=== PATIENT | male | born 1970 | race Caucasian/White ===

== ENCOUNTER 2017-01-03 01:57 | Emergency (ER) | payer OTHER ==
--- NOTE | ~2017-01-03 | CR133 ---
[facility] A Service of [facility] & [facility] RADIOLOGY TEXT RESULTS PATIENT: ANIKA COSTELLO LOCATION: [facility] : 70 UNIT #: [id number] AGE: [address]: Barrie Quiroz DO SEX: M ORDER DR: [id number] [facility] [address] [place], [place] [address] [id number] E MR#: [id number] Acc #: [id number] NAME: ANIKA COSTELLO : 1970 SEX: M STUDY DATE/TIME: 01/03/2017 2:13 UNIT: [facility] ROOM: STUDY DESCRIPTION: CR Forearm 2 View Rt Attending Physician: Barrie Quiroz D.O. Ordering Physician: Barrie Quiroz D.O. Primary Care Physician: Primary Care Physician No MEDICAL IMAGING REPORT This report is preliminary unless electronic signature is present EXAM Forearm on the right 2 views, 01/03/2017 INDICATION Generalized arm pain after 2 seizures tonight. TECHNIQUE 2 views of the right forearm COMPARISON No comparisons FINDINGS The examination is negative. No acute fracture. Soft tissues unremarkable. IMPRESSION Negative. Dictated by... Rodney Riley M.D. THIS IS AN ELECTRONICALLY VERIFIED REPORT Rodney Riley M.D. at 01/03/2017 9:55 PM Sandi TD: 01/03/2017 08:14 JOB #: [id number] MEDICAL IMAGING REPORT Page 1 of 1 COPY
--- NOTE | ~2017-01-03 | CR181 ---
[facility] A Service of [facility] & [facility] RADIOLOGY TEXT RESULTS PATIENT: ANIKA COSTELLO LOCATION: [facility] : 70 UNIT #: [id number] AGE: [address]: Barrie Quiroz DO SEX: M ORDER DR: [id number] [facility] [address] [place], [place] [address] [id number] E MR#: [id number] Acc #: [id number] NAME: ANIKA COSTELLO : 1970 SEX: M STUDY DATE/TIME: 01/03/2017 2:25 UNIT: [facility] ROOM: STUDY DESCRIPTION: CR Lumbar Spine 2 or 3 Views Attending Physician: Barrie Quiroz D.O. Ordering Physician: Barrie Quiroz D.O. Primary Care Physician: Primary Care Physician No MEDICAL IMAGING REPORT This report is preliminary unless electronic signature is present EXAM Lumbar series 01/03/2017 INDICATIONS 46-year-old male with trauma tonight, seizure x2, generalized back pain. TECHNIQUE 3 views of the lumbar spine compared 11/24/2013 FINDINGS There is no acute fracture or malalignment. Mild degenerative disc disease at L4-5. No significant facet arthropathy. IMPRESSION Mild degenerative change at L4-5 otherwise negative lumbar series. Dictated by... Rodney Riley M.D. THIS IS AN ELECTRONICALLY VERIFIED REPORT Rodney Riley M.D. at 01/03/2017 9:55 PM Garrett TD: 01/03/2017 08:33 JOB #: [id number] MEDICAL IMAGING REPORT Page 1 of 1 COPY
--- NOTE | ~2017-01-03 | CR243 ---
[facility] A Service of [facility] & [facility] RADIOLOGY TEXT RESULTS PATIENT: ANIKA COSTELLO LOCATION: [facility] : 70 UNIT #: [id number] AGE: [address]: Barrie Quiroz DO SEX: M ORDER DR: [id number] [facility] [address] [place], [place] [address] [id number] E MR#: [id number] Acc #: [id number] NAME: ANIKA COSTELLO : 1970 SEX: M STUDY DATE/TIME: 01/03/2017 2:17 UNIT: [facility] ROOM: STUDY DESCRIPTION: CR Thoracic Spine 3 Views Attending Physician: Barrie Quiroz D.O. Ordering Physician: Barrie Quiroz D.O. Primary Care Physician: Primary Care Physician No MEDICAL IMAGING REPORT This report is preliminary unless electronic signature is present EXAM Thoracic series 01/03/2017 INDICATION Trauma, seizure, generalized back pain, 2 seizures tonight. TECHNIQUE Lateral, frontal and swimmer's views were performed. COMPARISON 09/17/2013. FINDINGS Cervicothoracic junction intact. The bones are osteopenic. There is no acute-appearing fracture or malalignment. IMPRESSION Osteopenia. No acute fracture or malalignment. Mild degenerative disc disease in the cervical thoracic spine. Dictated by... Rodney Riley M.D. THIS IS AN ELECTRONICALLY VERIFIED REPORT Rodney Riley M.D. at 01/03/2017 9:52 PM KAMALJIT/lavonne TD: 01/03/2017 08:16 JOB #: [id number] MEDICAL IMAGING REPORT Page 1 of 1 COPY
--- NOTE | ~2017-01-03 | CR219 ---
[facility] A Service of [facility] & [facility] RADIOLOGY TEXT RESULTS PATIENT: ANIKA COSTELLO LOCATION: [facility] : 70 UNIT #: [id number] AGE: [address]: Barrie Quiroz DO SEX: M ORDER DR: [id number] [facility] [address] [place], [place] [address] [id number] E MR#: [id number] Acc #: [id number] NAME: ANIKA COSTELLO : 1970 SEX: M STUDY DATE/TIME: 01/03/2017 2:28 UNIT: [facility] ROOM: STUDY DESCRIPTION: CR Sacrum and Coccyx Min 2 Vie Attending Physician: Barrie Quiroz D.O. Ordering Physician: Barrie Quiroz D.O. Primary Care Physician: Primary Care Physician No MEDICAL IMAGING REPORT This report is preliminary unless electronic signature is present EXAM Sacrum and coccyx series 01/03/2017 INDICATIONS Seizure x2 tonight. Back pain, generalized back pain. TECHNIQUE 3 views of the sacrum and coccyx. No relevant comparisons. FINDINGS Frontal view degraded by exposure factors. Mild degenerative change of both hips. Mild degenerative disc disease at L4-5 in the lumbar spine. No acute-appearing fracture. SI joints intact. IMPRESSION 1. No acute fracture. Mild degenerative disc disease at L4-5 and degenerative change of the hips. Dictated by... Rodney Riley M.D. THIS IS AN ELECTRONICALLY VERIFIED REPORT Rodney Riley M.D. at 01/03/2017 9:55 PM Wilian TD: 01/03/2017 08:20 JOB #: [id number] MEDICAL IMAGING REPORT Page 1 of 1 COPY
--- NOTE | ~2017-01-03 | CT71 ---
[facility] A Service of [facility] RADIOLOGY TEXT RESULTS PATIENT: ANIKA COSTELLO LOCATION: [facility] : 70 UNIT #: [id number] AGE: [address]: Barrie Quiroz DO SEX: M ORDER DR: [id number] [facility] [address] [place], [place] [address] [id number] E MR#: [id number] Acc #: [id number] NAME: ANIKA COSTELLO : 1970 SEX: M STUDY DATE/TIME: 01/03/2017 3:06 UNIT: [facility] ROOM: STUDY DESCRIPTION: CT Head Wo Contrast Attending Physician: Barrie Quiroz D.O. Ordering Physician: Barrie Quiroz D.O. Primary Care Physician: Primary Care Physician No MEDICAL IMAGING REPORT This report is preliminary unless electronic signature is present EXAM Head CT no contrast 01/03/2017 INDICATIONS Seizure, stroke, COPD, atrial fibrillation, hypertension and diabetes. Seizure x2 tonight. Longstanding history of seizures, missed medications tonight. Fell on the floor. Head and neck pain, headache. TECHNIQUE Noncontrast CT brain was performed. Comparison 11/23/[address] exam was performed with one or more of the following radiation dose reduction techniques: automatic exposure control, adjustment of mA and/or kV according to patient size, and iterative reconstruction. FINDINGS CT BRAIN: There is mild disconjugate gaze. Sulci and ventricles within normal limits. No midline shift. No evidence of acute intracranial hemorrhage. There is no mass, mass effect or edema to suggest acute infarct and no extraaxial fluid collections are present. Chronic-appearing encephalomalacia change in the right inferior frontal lobe. Globes intact. Bones intact. There is chronic-appearing mild sinus disease primarily affecting the ethmoid air cells. IMPRESSION 1. No clearly acute intracranial process. No evidence of acute intracranial hemorrhage. 2. Chronic encephalomalacia change in the inferior right frontal lobe. 3. Mild ethmoid sinus disease appears chronic. 4. Not mentioned above. Chronic septal deviation to the left. [facility] A Service of [facility] RADIOLOGY TEXT RESULTS PATIENT: ANIKA COSTELLO LOCATION: [facility] : 70 UNIT #: [id number] AGE: [address]: Barrie Quirzo DO SEX: M ORDER DR: Dictated by... Rodney Riley M.D. THIS IS AN ELECTRONICALLY VERIFIED REPORT Rodney Riley M.D. at 01/03/2017 9:55 PM Wilian TD: 01/03/2017 08:09 JOB #: [id number] MEDICAL IMAGING REPORT Page 1 of 1 COPY
--- NOTE | ~2017-01-03 | EKG ---
PATIENT: COSTELLO, ANIKA UNIT #: [id number] Ventricular Rate: 69 BPM Atrial Rate: 69 BPM P-R Interval: 186 ms QRS Duration: 112 ms Q-T Interval: 398 ms QTC Calculation(Bezet): 426 ms P Sherwood: 57 degrees Calculated R Sherwood: -22 degrees Calculated T Sherwood: 32 degrees Diagnosis Line: Normal sinus rhythm Diagnosis Line: Normal ECG Diagnosis Line: No previous ECGs available Diagnosis Line: Confirmed by KERRI CRUZ MD ([id number]) on 01/03/2017 Diagnosis Line: 9:20:53 PM INTERPRETING MD: NANCY GARCIA
--- NOTE | ~2017-01-03 | CR157 ---
[facility] A Service of [facility] & [facility] RADIOLOGY TEXT RESULTS PATIENT: ANIKA COSTELLO LOCATION: [facility] : 70 UNIT #: [id number] AGE: [address]: Barrie Quiroz DO SEX: M ORDER DR: [id number] [facility] [address] [place], [place] [address] [id number] E MR#: [id number] Acc #: [id number] NAME: ANIKA COSTELLO : 1970 SEX: M STUDY DATE/TIME: 01/03/2017 2:14 UNIT: [facility] ROOM: STUDY DESCRIPTION: CR Humerus Min 2 View Rt Attending Physician: Barrie Quiroz D.O. Ordering Physician: Barrie Quiroz D.O. Primary Care Physician: Primary Care Physician No MEDICAL IMAGING REPORT This report is preliminary unless electronic signature is present EXAM Right humerus 01/03/2017 INDICATIONS 46-year-old male seizure tonight. Generalized right arm pain and extremity pain. EXAM 2 views of the right humerus. No comparisons. FINDINGS Examination is negative. No acute fracture. Soft tissues unremarkable. IMPRESSION 1. Negative Dictated by... Rodney Riley M.D. THIS IS AN ELECTRONICALLY VERIFIED REPORT Rodney Riley M.D. at 01/03/2017 9:52 PM Wilian TD: 01/03/2017 08:08 JOB #: [id number] MEDICAL IMAGING REPORT Page 1 of 1 COPY
--- NOTE | ~2017-01-03 | CT52 ---
[facility] A Service of [facility] RADIOLOGY TEXT RESULTS PATIENT: ANIKA COSTELLO LOCATION: [facility] : 70 UNIT #: [id number] AGE: [address]: Barrie Quiroz DO SEX: M ORDER DR: [id number] [facility] [address] [place], [place] [address] [id number] E MR#: [id number] Acc #: [id number] NAME: ANIKA COSTELLO : 1970 SEX: M STUDY DATE/TIME: 01/03/2017 3:12 UNIT: [facility] ROOM: STUDY DESCRIPTION: CT Cervical Spine Wo Cont Attending Physician: Barrie Quiroz D.O. Ordering Physician: Barrie Quiroz D.O. Primary Care Physician: Primary Care Physician No MEDICAL IMAGING REPORT This report is preliminary unless electronic signature is present EXAM CT C-spine no contrast 01/03/2017 INDICATIONS 46-year-old male with history of seizure tonight x2. Missed meds. Longstanding seizure history. Fell the floor, neck pain, headache. TECHNIQUE Noncontrast CT of the C-spine was performed. Sagittal and coronal reformats performed. The CT exam was performed with one or more of the following radiation dose reduction techniques: automatic exposure control, adjustment of mA and/or kV according to patient size, and iterative reconstruction. COMPARISON: 07/16/[address] C-spine: Dens and lateral masses intact. No acute fracture. Alignment is preserved. No critical central canal stenosis. There is mild uncovertebral spurring in the lower cervical levels and mild facet arthropathy in the lower cervical levels. There is degenerative disc disease at C6-7 with anterior osteophyte formation similar to the prior study. Included lung apices clear. Included thyroid unremarkable. Reactive-appearing neck soft tissue nodes bilaterally. IMPRESSION 1. No acute fracture or malalignment. 2. Degenerative changes related to degenerative disc disease and facet arthropathy. No critical central canal stenosis. [facility] A Service of [facility] RADIOLOGY TEXT RESULTS PATIENT: ANIKA COSTELLO LOCATION: [facility] : 70 UNIT #: [id number] AGE: [address]: Barrie Quiroz DO SEX: M ORDER DR: Dictated by... Rodney Riley M.D. THIS IS AN ELECTRONICALLY VERIFIED REPORT Rodney Riley M.D. at 01/03/2017 9:55 PM KAMALJIT/rocky TD: 01/03/2017 08:15 JOB #: [id number] MEDICAL IMAGING REPORT Page 1 of 1 COPY
[~2017-01-03 01:57] MED LIST: DILANTIN PO; KEPPRA500 M2 PO
[2017-01-03 02:09] LABS: BASOPHIL% 0.3 % (0-2.5); EOSINOPHIL# 0.2 X10e3 (0-0.7); EOSINOPHIL% 2.6 % (0.0-7.0); HEMATOCRIT 36.4 % (38.0-50.0); HEMOGLOBIN 12.1 gm/dL (13.0-16.0); LYMPHOCYTE# 1.8 X10e3 (1.0-3.5); LYMPHOCYTE% 22.4 % (17.0-45.0); MEAN CELL VOLUME 85.8 FL (83-96); MEAN CORPUSCULAR HEMOGLOBIN 28.4 PG (28-34); MEAN CORPUSCULAR HGB CONC 33.2 g/dL (30-36); MEAN PLATELET VOLUME 7.5 FL (6.5-11.5); MONOCYTE# 0.8 X10e3 (0-1.0); MONOCYTE% 9.9 % (3.0-12.0); NEUTROPHIL# 5.1 X10e3 (1.5-7.1); NEUTROPHIL% 64.8 % (40-75); PLATELET COUNT 193 X10e3 (140-420); RED BLOOD COUNT 4.24 X10e (3.90-5.60); RED CELL DISTRIBUTION WIDTH 13.8 % (11.0-15.5); WHITE BLOOD COUNT 7.8 X10e3 (4.0-10.5)
[2017-01-03 02:10] LABS: DIFF IND NO
[2017-01-03 02:49] LABS: ALBUMIN SERUM 3.9 g/dL (3.5-5.0); ALKALINE PHOSPHATASE 76 U/L (32-92); ALT (SGPT) 29 U/L (10-40); AST (SGOT) 21 U/L (10-42); BILIRUBIN, DIRECT 0.1 mg/dL (0.0-0.2); BILIRUBIN,TOTAL 0.1 mg/dL (0.2-2.0); BLOOD UREA NITROGEN 9 mg/dL (9-23); CALCIUM SERUM 8.7 mg/dL (8.4-10.2); CARBON DIOXIDE 32 mmol/L (22-31); CHLORIDE 102 mmol/L (100-111); GLOM FILT RATE Estimated 89.9 mL/min (>60); GLUCOSE FASTING 105 mg/dL (70-110); POTASSIUM 3.9 mmol/L (3.5-5.1); PROTEIN TOTAL SERUM 6.6 g/dL (6.0-8.3); SODIUM 139 mmol/L (135-145)
[2017-01-03 02:50] LABS: ALCOHOL BLOOD <5 mg/dL (0); DILANTIN (PHENYTOIN) <2.5 ug/mL (10.0-20.0)
[2017-01-03 03:43] LABS: POC - CKMB 1.1 ng/mL (0.0-7.9); POC - TROPONIN <0.05 ng/mL (<=0.05)
[2017-01-03 05:09] LABS: POC - CKMB <1.0 ng/mL (0.0-7.9); POC - TROPONIN <0.05 ng/mL (<=0.05)
[2017-01-03 05:32] LABS: URINE APPEARANCE CLOUDY; URINE BILIRUBIN NEG (NEG); URINE BLOOD NEG (NEG); URINE COLOR YELLOW; URINE GLUCOSE NEG (NEG); URINE KETONE NEG (NEG); URINE LEUKOCYTE ESTERASE NEG (NEG); URINE NITRATE NEG (NEG); URINE PH 7.5 (5-8); URINE PROTEIN NEG (NEG); URINE SPECIFIC GRAVITY 1.014 (1.003-1.035); URINE UROBILINOGEN 0.2 MG/DL (NEG)
[2017-01-03 05:41] LABS: URINE SOURCE CATH
[2017-01-03 05:42] LABS: CULTURE INDICATED? NO
[2017-01-03 05:55] LABS: AMPHETAMINE NEG (NEG); BARBITURATES NEG (NEG); BENZODIAZEPINES NEG (NEG); COCAINE NEG (NEG); MARIJUANA NEG (NEG); OPIATES NEG (NEG); TRICYCLIC ANTIDEPRESSANTS NEG (NEG); U METHADONE NEG (NEG)
[2017-01-16] MEDS ORDERED: ATIVAN PO (21:53)
== END 2017-01-03 07:27 | disposition home or self-care (01) ==
LOC: CED 01:57
PROVIDERS: Emergency Medicine
DX: G40.909 Epilepsy, unspecified, not intractable, without status epilepticus (principal); F32.9 Major depressive disorder, single episode, unspecified; J44.9 Chronic obstructive pulmonary disease, unspecified; F41.9 Anxiety disorder, unspecified; Z86.73 Personal history of transient ischemic attack (TIA), and cerebral infarction without residual deficits; Z79.899 Other long term (current) drug therapy; Z91.040 Latex allergy status; Z88.0 Allergy status to penicillin
CPT/HCPCS: 36415; 70450; 72072; 72100; 72125; 72220; 73060; 73090; 80048; 80076; 80185; 80307; 81003; 82553; 82947; 84484; 85025; 93005; 96365; 96375; 99284; G0480; J1953; J2060; Q2009

== ENCOUNTER 2017-01-16 22:21 | Emergency (ER) | payer OTHER ==
--- NOTE | ~2017-01-16 | CT71 ---
[facility] A Service of [facility] RADIOLOGY TEXT RESULTS PATIENT: ANIKA COSTELLO LOCATION: [facility] : 70 UNIT #: [id number] AGE: [address]: Leonela Bland MD SEX: M ORDER DR: [id number] [facility] [address] [place], [place] [address] [id number] E MR#: [id number] Acc #: [id number] NAME: ANIKA COSTELLO : 1970 SEX: M STUDY DATE/TIME: 01/16/2017 UNIT: [facility] ROOM: STUDY DESCRIPTION: CT Head Wo Contrast Attending Physician: Leonela Bland M.D. Ordering Physician: Leonela Bland M.D. Primary Care Physician: Primary Care Physician No MEDICAL IMAGING REPORT This report is preliminary unless electronic signature is present EXA, Head CT 01/16 at 23:21 INDICATIONS Witnessed seizure today. Patient had a fall at that time. Patient complains of headaches since then. Patient has history of seizures. COMPARISON 01/03/2017, please use dose reduction statement. The CT exam was performed with one or more of the following radiation dose reduction techniques: automatic exposure control, adjustment of mA and/or kV according to patient size, and iterative reconstruction. FINDINGS Axial images were obtained from the base to the vertex. Redemonstrated is encephalomalacia in the right inferior frontal lobe. Ventricular size and configuration remain normal. No acute infarct or hemorrhage is seen. There are no masses. There are no acute skull fractures. There is an old fracture of the right lateral orbital wall. IMPRESSION No acute findings in the brain. No skull fracture. There is chronic encephalomalacia in the right inferior frontal lobe. Dictated by... Jordan Best Jr., M.D. THIS IS AN ELECTRONICALLY VERIFIED REPORT Jordan Best Jr., M.D. at 01/17/2017 9:24 PM RLK/cmm [facility] A Service of [facility] RADIOLOGY TEXT RESULTS PATIENT: ANIKA COSTELLO LOCATION: [facility] : 70 UNIT #: [id number] AGE: [address]: Leonela Bland MD SEX: M ORDER DR: TD: 01/17/2017 09:13 JOB #: [id number] MEDICAL IMAGING REPORT Page 1 of 1 COPY
--- NOTE | ~2017-01-16 | CR230 ---
[facility] A Service of [facility] & [facility] RADIOLOGY TEXT RESULTS PATIENT: ANIKA COSTELLO LOCATION: [facility] : 70 UNIT #: [id number] AGE: [address]: Leonela Bland MD SEX: M ORDER DR: [id number] [facility] [address] [place], [place] [address] [id number] E MR#: [id number] Acc #: [id number] NAME: ANIKA COSTELLO : 1970 SEX: M STUDY DATE/TIME: 01/16/2017 UNIT: [facility] ROOM: STUDY DESCRIPTION: CR Shoulder Min 2 View Rt Attending Physician: Leonela Bland M.D. Ordering Physician: Leonela lBand M.D. Primary Care Physician: Primary Care Physician No MEDICAL IMAGING REPORT This report is preliminary unless electronic signature is present EXAM RIGHT shoulder 01/16 at 23:33 INDICATIONS Generalized shoulder pain that started tonight after a seizure. FINDINGS 3 views of the right shoulder are compared with no 10/30/2016. No fracture or malalignment is seen. There is no AC joint separation. IMPRESSION Negative right shoulder. Dictated by... Jordan Best Jr., M.D. THIS IS AN ELECTRONICALLY VERIFIED REPORT Jordan Best Jr., M.D. at 01/17/2017 9:24 PM CHUNG/rocky TD: 01/17/2017 09:09 JOB #: [id number] MEDICAL IMAGING REPORT Page 1 of 1 COPY
[~2017-01-16 22:21] MED LIST changes: +ATIVAN PO
[2017-01-16 22:30] LABS: BASOPHIL% 0.2 % (0-2.5); EOSINOPHIL# 0.2 X10e3 (0-0.7); EOSINOPHIL% 2.5 % (0.0-7.0); HEMATOCRIT 35.8 % (38.0-50.0); HEMOGLOBIN 11.8 gm/dL (13.0-16.0); LYMPHOCYTE# 1.5 X10e3 (1.0-3.5); LYMPHOCYTE% 22.9 % (17.0-45.0); MEAN CELL VOLUME 86.7 FL (83-96); MEAN CORPUSCULAR HEMOGLOBIN 28.6 PG (28-34); MEAN PLATELET VOLUME 7.7 FL (6.5-11.5); MONOCYTE# 0.8 X10e3 (0-1.0); MONOCYTE% 12.4 % (3.0-12.0); NEUTROPHIL# 4.2 X10e3 (1.5-7.1); PLATELET COUNT 176 X10e3 (140-420); RED BLOOD COUNT 4.14 X10e (3.90-5.60); RED CELL DISTRIBUTION WIDTH 13.4 % (11.0-15.5); WHITE BLOOD COUNT 6.7 X10e3 (4.0-10.5)
[2017-01-16 22:32] LABS: DIFF IND NO
[2017-01-16 22:54] LABS: BUN/CREATININE RATIO 8.88; CALCIUM SERUM 8.8 mg/dL (8.4-10.2); CREATININE SERUM 0.9 mg/dL (0.6-1.4); GLOM FILT RATE Estimated 102.1 mL/min (>60); POTASSIUM 4.1 mmol/L (3.5-5.1)
== END 2017-01-17 01:17 | disposition home or self-care (01) ==
LOC: CED 22:21
PROVIDERS: Student in an Organized Health Care Education/Training Program
DX: S80.11XA Contusion of right lower leg, initial encounter (principal); G40.409 Other generalized epilepsy and epileptic syndromes, not intractable, without status epilepticus; E11.9 Type 2 diabetes mellitus without complications; I10 Essential (primary) hypertension; J44.9 Chronic obstructive pulmonary disease, unspecified; I48.91 Unspecified atrial fibrillation; Z88.0 Allergy status to penicillin; Z98.890 Other specified postprocedural states; Z79.899 Other long term (current) drug therapy; W22.8XXA Striking against or struck by other objects, initial encounter; Y92.9 Unspecified place or not applicable
CPT/HCPCS: 36415; 70450; 73030; 80048; 80185; 82947; 85025; 96374; 99284; J1953

== ENCOUNTER 2017-02-01 23:59 | Emergency (ER) | payer OTHER ==
[2017-02-02 01:16] LABS: BASOPHIL% 0.3 % (0-2.5); EOSINOPHIL# 0.3 X10e3 (0-0.7); EOSINOPHIL% 3.5 % (0.0-7.0); HEMATOCRIT 35.9 % (38.0-50.0); HEMOGLOBIN 11.8 gm/dL (13.0-16.0); LYMPHOCYTE# 1.8 X10e3 (1.0-3.5); LYMPHOCYTE% 23.7 % (17.0-45.0); MEAN CELL VOLUME 86.6 FL (83-96); MEAN CORPUSCULAR HEMOGLOBIN 28.5 PG (28-34); MEAN CORPUSCULAR HGB CONC 32.9 g/dL (30-36); MEAN PLATELET VOLUME 7.6 FL (6.5-11.5); MONOCYTE# 0.9 X10e3 (0-1.0); MONOCYTE% 11.2 % (3.0-12.0); NEUTROPHIL# 4.7 X10e3 (1.5-7.1); NEUTROPHIL% 61.3 % (40-75); PLATELET COUNT 202 X10e3 (140-420); RED BLOOD COUNT 4.15 X10e (3.90-5.60); RED CELL DISTRIBUTION WIDTH 13.6 % (11.0-15.5); WHITE BLOOD COUNT 7.6 X10e3 (4.0-10.5)
[2017-02-02 01:18] LABS: DIFF IND NO
[2017-02-02 01:36] LABS: BUN/CREATININE RATIO 13.33; CALCIUM SERUM 8.4 mg/dL (8.4-10.2); CREATININE SERUM 0.9 mg/dL (0.6-1.4); DILANTIN (PHENYTOIN) 6.5 ug/mL (10.0-20.0); GLOM FILT RATE Estimated 102.1 mL/min (>60); POTASSIUM 3.7 mmol/L (3.5-5.1)
== END 2017-02-02 07:19 | disposition home or self-care (01) ==
LOC: CED 23:59
PROVIDERS: Emergency Medicine
DX: G40.409 Other generalized epilepsy and epileptic syndromes, not intractable, without status epilepticus (principal); I48.91 Unspecified atrial fibrillation; Z86.73 Personal history of transient ischemic attack (TIA), and cerebral infarction without residual deficits
CPT/HCPCS: 36415; 80048; 80185; 82947; 85025; 96374; 99284; J1165

== ENCOUNTER 2017-02-05 18:22 | Emergency (ER) | payer OTHER ==
--- NOTE | ~2017-02-05 | CR21 ---
[facility] A Service of [facility] & [facility] RADIOLOGY TEXT RESULTS PATIENT: ANIKA COSTELLO LOCATION: [facility] : 70 UNIT #: [id number] AGE: [address]: Hector Craig MD SEX: M ORDER DR: [id number] [facility] [address] [place], [place] [address] [id number] E MR#: [id number] Acc #: [id number] NAME: ANIKA COSTELLO : 1970 SEX: M STUDY DATE/TIME: 02/05/2017 16:45 UNIT: [facility] ROOM: STUDY DESCRIPTION: CR Ankle Min 3 Views Rt Ordering Physician: [facility] Primary Care Physician: Vikram Kearns M.D. MEDICAL IMAGING REPORT This report is preliminary unless electronic signature is present EXAM Right ankle 3 views 02/05/2017, HISTORY History - history sheet states seizure and fell on right side. Best possible films due to sequela of patient condition. Right-sided pain, including ankle, symptoms began today. FINDINGS No fracture or dislocation is noted. A multipartite os peroneum is incidentally noted in the plantar hindfoot. Small plantar calcaneal enthesophytes are noted. No fracture, dislocation or radiopaque foreign body. IMPRESSION 1. No acute abnormality of the right ankle. Dictated by... Sapna Steward M.D. THIS IS AN ELECTRONICALLY VERIFIED REPORT Sapna Steward M.D. at 02/06/2017 8:09 AM [facility]/pcl TD: 02/05/2017 20:19 JOB #: [id number] MEDICAL IMAGING REPORT Page 1 of 1 COPY
--- NOTE | ~2017-02-05 | CR230 ---
[facility] A Service of [facility] & [facility] RADIOLOGY TEXT RESULTS PATIENT: ANIKA COSTELLO LOCATION: [facility] : 70 UNIT #: [id number] AGE: [address]: Hector Craig MD SEX: M ORDER DR: [id number] [facility] [address] [place], [place] [address] [id number] E MR#: [id number] Acc #: [id number] NAME: ANIKA COSTELLO : 1970 SEX: M STUDY DATE/TIME: 02/05/2017 16:55 UNIT: [facility] ROOM: STUDY DESCRIPTION: CR Shoulder Min 2 View Rt Attending Physician: Buddy Craig M.D. Ordering Physician: Ed Doctor [id number] [facility] Primary Care Physician: Vikram Kearns M.D. MEDICAL IMAGING REPORT This report is preliminary unless electronic signature is present EXAM Right shoulder 3 views, 02/05/2017 COMPARISON STUDIES Right shoulder 3 views 01/16/2017. HISTORY Seizure today. Right shoulder pain since seizure. FINDINGS There is no fracture, dislocation, or radiopaque foreign body. The AC joint and glenohumeral joint are normal. IMPRESSION Negative right shoulder. Dictated by... Sapna Steward M.D. THIS IS AN ELECTRONICALLY VERIFIED REPORT Sapna Steward M.D. at 02/06/2017 8:09 AM CHANCE/kaitlin TD: 02/05/2017 20:28 JOB #: [id number] MEDICAL IMAGING REPORT Page 1 of 1 COPY
--- NOTE | ~2017-02-05 | CR58 ---
[facility] A Service of [facility] & [facility] RADIOLOGY TEXT RESULTS PATIENT: ANIKA COSTELLO LOCATION: [facility] : 70 UNIT #: [id number] AGE: [address]: Hector Craig MD SEX: M ORDER DR: [id number] [facility] [address] [place], [place] [address] [id number] E MR#: [id number] Acc #: [id number] NAME: ANIKA COSTELLO : 1970 SEX: M STUDY DATE/TIME: 02/05/2017 16:57 UNIT: [facility] ROOM: STUDY DESCRIPTION: CR Cervical Spine 2 or 3 Views Attending Physician: Buddy Craig M.D. Ordering Physician: Ed Doctor [id number] [facility] Primary Care Physician: Vikram Kearns M.D. MEDICAL IMAGING REPORT This report is preliminary unless electronic signature is present EXAM Cervical spine, 02/05/17 INDICATION Seizure today. Patient had subsequent fall and report neck pain and right shoulder pain. FINDINGS Five views of the cervical spine are compared to cervical CT from 01/03/17. No fracture or subluxation is seen. Prevertebral soft tissues are normal. There is degenerative disk disease at C6-C7. There is some degenerative facet arthropathy in the lower cervical spine. IMPRESSION Degenerative disease in the lower cervical spine. No acute fracture or malalignment. Dictated by... Jordan Best Jr., M.D. THIS IS AN ELECTRONICALLY VERIFIED REPORT Jordan Best Jr., M.D. at 02/05/2017 10:25 PM CHUNG/kaitlin TD: 02/05/2017 20:45 JOB #: [id number] MEDICAL IMAGING REPORT Page 1 of 1 COPY
--- NOTE | ~2017-02-05 | CT71 ---
[facility] A Service of [facility] RADIOLOGY TEXT RESULTS PATIENT: ANIKA COSTELLO LOCATION: [facility] : 70 UNIT #: [id number] AGE: [address]: Hector Craig MD SEX: M ORDER DR: [id number] [facility] [address] [place], [place] [address] [id number] E MR#: [id number] Acc #: [id number] NAME: ANIKA COSTELLO : 1970 SEX: M STUDY DATE/TIME: 02/05/2017 17:31 UNIT: [facility] ROOM: STUDY DESCRIPTION: CT Head Wo Contrast Attending Physician: Buddy Craig M.D. Ordering Physician: Rui Hernández M.D. Primary Care Physician: Vikram Kearns M.D. MEDICAL IMAGING REPORT This report is preliminary unless electronic signature is present EXAM Head CT, 02/05 INDICATIONS Patient had seizure today with legs shaking. Patient slid on floor at assisted living facility. FINDINGS Axial images were obtained from the base to the vertex without contrast. Comparison made with 01/16/2017. This CT exam was performed with one or more of the following radiation dose reduction techniques: Automatic exposure control, adjustment of mA and/or kV according to patient size, and iterative reconstruction. Again seen is encephalomalacia in the right frontal lobe. Ventricular size and configuration remain normal. There is no acute infarct or hemorrhage. There are no masses. There are no skull fractures. IMPRESSION No acute abnormalities. No change from prior. Dictated by... Jordan Best Jr., M.D. THIS IS AN ELECTRONICALLY VERIFIED REPORT Jordan Best Jr., M.D. at 02/05/2017 10:25 PM CHUNG/mariana TD: 02/05/2017 20:47 JOB #: [id number] [facility] A Service of [facility] RADIOLOGY TEXT RESULTS PATIENT: ANIKA COSTELLO LOCATION: [facility] : 70 UNIT #: [id number] AGE: [address]: Hector Craig MD SEX: M ORDER DR: MEDICAL IMAGING REPORT Page 1 of 1 COPY
--- NOTE | ~2017-02-05 | CR282 ---
[facility] A Service of [facility] & [facility] RADIOLOGY TEXT RESULTS PATIENT: ANIKA COSTELLO LOCATION: [facility] : 70 UNIT #: [id number] AGE: [address]: Hector Craig MD SEX: M ORDER DR: [id number] [facility] [address] [place], [place] [address] [id number] E MR#: [id number] Acc #: [id number] NAME: ANIKA COSTELLO : 1970 SEX: M STUDY DATE/TIME: 02/05/2017 16:42 UNIT: [facility] ROOM: STUDY DESCRIPTION: CR Wrist Min 3 View Rt Ordering Physician: [facility] Primary Care Physician: Vikram Kearns M.D. MEDICAL IMAGING REPORT This report is preliminary unless electronic signature is present EXAM Right wrist 3 views HISTORY Wrist pain after fall today following seizure. FINDINGS Wrist evaluation in multiple projections shows normal mineralization of the bony structures about the wrist and satisfactory articular relationship of the radius and ulna to the proximal carpal row and of the distal carpal segments to the metacarpal bases. There is no indication of fracture or dislocation, and no soft tissue radiopaque foreign body is present. No congenital defects are apparent. IMPRESSION Normal wrist. Dictated by... Ruddy Durant M.D. THIS IS AN ELECTRONICALLY VERIFIED REPORT Ruddy Durant M.D. at 02/06/2017 2:37 PM DFL/pcl TD: 02/05/2017 20:22 JOB #: [id number] MEDICAL IMAGING REPORT Page 1 of 1 COPY
--- NOTE | ~2017-02-05 | CR94 ---
[facility] A Service of [facility] & [facility] / [facility] RADIOLOGY TEXT RESULTS PATIENT: ANIKA COSTELLO LOCATION: [facility] : 70 UNIT #: [id number] AGE: [address]: Hector Craig MD SEX: M ORDER DR: [id number] [facility] [address] [place], [place] [address] [id number] E MR#: [id number] Acc #: [id number] NAME: ANIKA COSTELLO : 1970 SEX: M STUDY DATE/TIME: 02/05/2017 16:48 UNIT: [facility] ROOM: STUDY DESCRIPTION: CR Elbow Min 3 Views Rt Ordering Physician: [facility] Primary Care Physician: Vikram Kearns M.D. MEDICAL IMAGING REPORT This report is preliminary unless electronic signature is present EXAM Right elbow 3 views HISTORY Elbow pain after fall following seizure today. FINDINGS AP and lateral examination of the elbow shows satisfactory articulation of the humerus with the proximal radius and ulna. There is no identifiable fracture, dislocation, joint effusion, or radiopaque foreign body in the soft tissues. IMPRESSION Normal elbow. Dictated by... Ruddy Durant M.D. THIS IS AN ELECTRONICALLY VERIFIED REPORT Ruddy Durant M.D. at 02/06/2017 2:38 PM DFL/pcl TD: 02/05/2017 20:23 JOB #: [id number] MEDICAL IMAGING REPORT Page 1 of 1 COPY
[2017-02-05 16:12] LABS: BASOPHIL% 0.3 % (0-2.5); EOSINOPHIL# 0.2 X10e3 (0-0.7); HEMATOCRIT 35.7 % (38.0-50.0); HEMOGLOBIN 11.6 gm/dL (13.0-16.0); LYMPHOCYTE# 1.5 X10e3 (1.0-3.5); LYMPHOCYTE% 17.9 % (17.0-45.0); MEAN CELL VOLUME 87.4 FL (83-96); MEAN CORPUSCULAR HEMOGLOBIN 28.5 PG (28-34); MEAN CORPUSCULAR HGB CONC 32.6 g/dL (30-36); MEAN PLATELET VOLUME 7.4 FL (6.5-11.5); MONOCYTE# 0.8 X10e3 (0-1.0); MONOCYTE% 9.9 % (3.0-12.0); NEUTROPHIL# 5.8 X10e3 (1.5-7.1); NEUTROPHIL% 69.9 % (40-75); PLATELET COUNT 188 X10e3 (140-420); RED BLOOD COUNT 4.09 X10e (3.90-5.60); RED CELL DISTRIBUTION WIDTH 13.6 % (11.0-15.5); WHITE BLOOD COUNT 8.3 X10e3 (4.0-10.5)
[2017-02-05 16:17] LABS: DIFF IND NO
[2017-02-05 16:31] LABS: BUN/CREATININE RATIO 16.25; CALCIUM SERUM 8.6 mg/dL (8.4-10.2); CREATININE SERUM 0.8 mg/dL (0.6-1.4); DILANTIN (PHENYTOIN) 5.1 ug/mL (10.0-20.0); GLOM FILT RATE Estimated 107.2 mL/min (>60); POTASSIUM 3.9 mmol/L (3.5-5.1)
== END 2017-02-05 21:40 | disposition home or self-care (01) ==
LOC: CED 18:22
PROVIDERS: Emergency Medicine
DX: G40.409 Other generalized epilepsy and epileptic syndromes, not intractable, without status epilepticus (principal); S50.01XA Contusion of right elbow, initial encounter; S40.011A Contusion of right shoulder, initial encounter; S60.211A Contusion of right wrist, initial encounter; I10 Essential (primary) hypertension; I48.91 Unspecified atrial fibrillation; J44.9 Chronic obstructive pulmonary disease, unspecified; Z88.0 Allergy status to penicillin; Z91.040 Latex allergy status; Z79.899 Other long term (current) drug therapy; Z86.73 Personal history of transient ischemic attack (TIA), and cerebral infarction without residual deficits; W06.XXXA Fall from bed, initial encounter
CPT/HCPCS: 36415; 70450; 72040; 73030; 73080; 73110; 73610; 80048; 80185; 82947; 85025; 96365; 96375; 99284; J1885; Q2009

== ENCOUNTER 2017-02-23 10:35 | Emergency (ER) | payer OTHER ==
[2017-02-23 12:07] LABS: BASOPHIL% 0.4 % (0-2.5); DIFF IND NO; EOSINOPHIL# 0.2 X10e3 (0-0.7); EOSINOPHIL% 3.7 % (0.0-7.0); HEMATOCRIT 38.1 % (38.0-50.0); HEMOGLOBIN 12.3 gm/dL (13.0-16.0); LYMPHOCYTE# 1.4 X10e3 (1.0-3.5); LYMPHOCYTE% 20.8 % (17.0-45.0); MEAN CELL VOLUME 87.9 FL (83-96); MEAN CORPUSCULAR HEMOGLOBIN 28.3 PG (28-34); MEAN CORPUSCULAR HGB CONC 32.2 g/dL (30-36); MEAN PLATELET VOLUME 7.9 FL (6.5-11.5); MONOCYTE# 0.9 X10e3 (0-1.0); MONOCYTE% 13.2 % (3.0-12.0); NEUTROPHIL# 4.1 X10e3 (1.5-7.1); NEUTROPHIL% 61.9 % (40-75); PLATELET COUNT 167 X10e3 (140-420); RED BLOOD COUNT 4.34 X10e (3.90-5.60); RED CELL DISTRIBUTION WIDTH 13.7 % (11.0-15.5); WHITE BLOOD COUNT 6.6 X10e3 (4.0-10.5)
[2017-02-23 12:21] LABS: ALBUMIN SERUM 3.8 g/dL (3.5-5.0); ALKALINE PHOSPHATASE 94 U/L (32-92); ALT (SGPT) 64 U/L (10-40); AST (SGOT) 37 U/L (10-42); BILIRUBIN, DIRECT 0.1 mg/dL (0.0-0.2); BILIRUBIN,INDIRECT 0.4 mg/dL (0.0-0.9); BILIRUBIN,TOTAL 0.5 mg/dL (0.2-2.0); BLOOD UREA NITROGEN 14 mg/dL (9-23); CALCIUM SERUM 8.7 mg/dL (8.4-10.2); CARBON DIOXIDE 29 mmol/L (22-31); CHLORIDE 102 mmol/L (100-111); GLOM FILT RATE Estimated 89.9 mL/min (>60); GLUCOSE FASTING 91 mg/dL (70-110); POTASSIUM 3.9 mmol/L (3.5-5.1); PROTEIN TOTAL SERUM 6.7 g/dL (6.0-8.3); SODIUM 139 mmol/L (135-145)
[2017-02-23 12:25] LABS: DILANTIN (PHENYTOIN) <2.5 ug/mL (10.0-20.0)
== END 2017-02-23 15:29 | disposition home or self-care (01) ==
LOC: CED 10:35 → CFTX 11:39 → CED 11:39
PROVIDERS: Emergency Medicine
DX: G40.409 Other generalized epilepsy and epileptic syndromes, not intractable, without status epilepticus (principal); E11.9 Type 2 diabetes mellitus without complications; Z79.4 Long term (current) use of insulin; Z88.0 Allergy status to penicillin; Z91.040 Latex allergy status
CPT/HCPCS: 36415; 80048; 80076; 80185; 85025; 96374; 99284; Q2009

== ENCOUNTER → 2017-02-23 | Outpatient (CLI) | payer OTHER ==
--- NOTE | ~2017-02-23 | US5 ---
[facility] A Service [facility] RADIOLOGY TEXT RESULTS PATIENT: ANIKA COSTELLO LOCATION: [facility] : 70 UNIT #: [id number] AGE: [address]: TAYO KEARNS MD SEX: M ORDER DR: [id number] [address] [address] [id number] O MR#: [id number] Acc #: [id number] NAME: ANIKA COSTELLO : 1970 SEX: M STUDY DATE/TIME: 02/23/2017 10:28 UNIT: [facility] ROOM: STUDY DESCRIPTION: US Abdominal Complete Attending Physician: Tayo Kearns M.D. Referring Physician: Tayo Kearns M.D. Ordering Physician: Tayo Kearns M.D. Primary Care Physician: Tayo Kearns M.D. MEDICAL IMAGING REPORT This report is preliminary unless electronic signature is present EXAM Abdominal ultrasound. INDICATION Abnormal elevated liver function tests. TECHNIQUE Reed-scale, color Doppler, and spectral Doppler waveform analysis was performed through the abdomen. FINDINGS Patient's aorta measures within normal size limits. Visualized portions of the pancreas appear unremarkable. Please note this examination cannot be completed as the patient became unstable and had to be transported back to the emergency department. IMPRESSION Nondiagnostic examination as the patient had to be transported back to the emergency department because of hemodynamic instability. Dictated by... Lashawn Grady M.D. THIS IS AN ELECTRONICALLY VERIFIED REPORT Lashawn Grady M.D. at 02/23/2017 5:06 PM AFF/tmw TD: 02/23/2017 16:55 JOB #: [id number] MEDICAL IMAGING REPORT [facility] A Service [facility] RADIOLOGY TEXT RESULTS PATIENT: ANIKA COSTELLO LOCATION: [facility] : 70 UNIT #: [id number] AGE: [address]: TAYO KEARNS MD SEX: M ORDER DR: Page 1 of 1 COPY
== END | disposition home or self-care (01) ==
LOC: CGUS 02-06 10:30
DX: R79.89 Other specified abnormal findings of blood chemistry (principal)
CPT/HCPCS: 76700; 82947

== ENCOUNTER 2017-03-02 20:42 | Emergency (ER) | payer OTHER ==
--- NOTE | ~2017-03-02 | CR230 ---
[facility] A Service of [facility] & [facility] RADIOLOGY TEXT RESULTS PATIENT: ANIKA COSTELLO LOCATION: [facility] : 70 UNIT #: [id number] AGE: [address]: Hector Craig MD SEX: M ORDER DR: [id number] [facility] [address] [place], [place] [address] [id number] E MR#: [id number] Acc #: [id number] NAME: ANIKA COSTELLO : 1970 SEX: M STUDY DATE/TIME: 03/03/2017 0:27 UNIT: [facility] ROOM: STUDY DESCRIPTION: CR Shoulder Min 2 View Rt Attending Physician: Buddy Craig M.D. Ordering Physician: Ed Doctor [id number] [facility] Primary Care Physician: Vikram Kearns M.D. MEDICAL IMAGING REPORT This report is preliminary unless electronic signature is present EXAM Right shoulder series INDICATION Right shoulder pain since yesterday. PROCEDURE 3 views of the right shoulder. COMPARISON 02/06/2017 FINDINGS No acute fracture. No dislocation. IMPRESSION No acute findings. Dictated by... Buddy Peralta M.D. THIS IS AN ELECTRONICALLY VERIFIED REPORT Buddy Peralta M.D. at 03/03/2017 9:58 PM Alfonso TD: 03/03/2017 09:17 JOB #: [id number] MEDICAL IMAGING REPORT Page 1 of 1 COPY
[2017-03-02 22:17] LABS: BASOPHIL% 0.3 % (0-2.5); EOSINOPHIL# 0.3 X10e3 (0-0.7); HEMATOCRIT 39.1 % (38.0-50.0); HEMOGLOBIN 12.7 gm/dL (13.0-16.0); LYMPHOCYTE# 1.7 X10e3 (1.0-3.5); LYMPHOCYTE% 20.1 % (17.0-45.0); MEAN CELL VOLUME 88.1 FL (83-96); MEAN CORPUSCULAR HEMOGLOBIN 28.7 PG (28-34); MEAN CORPUSCULAR HGB CONC 32.6 g/dL (30-36); MEAN PLATELET VOLUME 7.7 FL (6.5-11.5); MONOCYTE# 0.9 X10e3 (0-1.0); MONOCYTE% 10.9 % (3.0-12.0); NEUTROPHIL# 5.5 X10e3 (1.5-7.1); NEUTROPHIL% 65.7 % (40-75); PLATELET COUNT 190 X10e3 (140-420); RED BLOOD COUNT 4.44 X10e (3.90-5.60); RED CELL DISTRIBUTION WIDTH 13.8 % (11.0-15.5); WHITE BLOOD COUNT 8.4 X10e3 (4.0-10.5)
[2017-03-02 22:19] LABS: DIFF IND NO
[2017-03-02 22:39] LABS: CALCIUM SERUM 8.7 mg/dL (8.4-10.2); DILANTIN (PHENYTOIN) 3.2 ug/mL (10.0-20.0); GLOM FILT RATE Estimated 89.9 mL/min (>60); POTASSIUM 3.9 mmol/L (3.5-5.1)
[2017-03-02 22:50] LABS: URINE SOURCE CLEAN CATCH
[2017-03-02 22:57] LABS: URINE APPEARANCE CLEAR; URINE BILIRUBIN NEG (NEG); URINE BLOOD NEG (NEG); URINE COLOR YELLOW; URINE GLUCOSE NEG (NEG); URINE KETONE NEG (NEG); URINE LEUKOCYTE ESTERASE TRACE (NEG); URINE NITRATE NEG (NEG); URINE PROTEIN NEG (NEG); URINE SPECIFIC GRAVITY 1.007 (1.003-1.035); URINE UROBILINOGEN 0.2 MG/DL (NEG)
[2017-03-02 23:00] LABS: URBCS1 AUWI 0-2 /[HPF] (0-2); URINE BACTERIA AUWI NEG (NEGATIVE); URINE SQUAMOUS EPITHELIAL CELL NONE SEEN /[HPF]; UWBCS1 AUWI 0-2 (0-5)
[2017-03-02 23:02] LABS: CULTURE INDICATED? NO
== END 2017-03-03 03:15 | disposition home or self-care (01) ==
LOC: CED 20:42
PROVIDERS: Emergency Medicine
DX: S46.911A Strain of unspecified muscle, fascia and tendon at shoulder and upper arm level, right arm, initial encounter (principal); G40.909 Epilepsy, unspecified, not intractable, without status epilepticus; F32.9 Major depressive disorder, single episode, unspecified; Z91.040 Latex allergy status; Z88.0 Allergy status to penicillin; X58.XXXA Exposure to other specified factors, initial encounter; Y92.9 Unspecified place or not applicable
CPT/HCPCS: 36415; 73030; 80048; 80185; 81003; 85025; 96374; 99284; Q2009

== ENCOUNTER → 2017-03-23 | Outpatient (CLI) | payer OTHER ==
--- NOTE | ~2017-03-23 | EE ---
Unit #: [id number] #: [id number] Patient: ANIKA COSTELLO [id number] [address] [address] [id number] O MR#: [id number] NAME: ANIKA COSTELLO : 1970 SEX: M STUDY DATE/TIME: 03/23/2017 UNIT: [facility] ROOM: STUDY DESCRIPTION: EEG Attending Physician: Dionte Caballero II., M.D. Referring Physician: Dionte Caballero II., M.D. Primary Care Physician: Vikram Kearns M.D. NEURODIAGNOSTICS REPORT EXAM EEG REASON FOR STUDY Seizures. IPexpert TECHNICAL INFORMATION This is a routine EEG performed using the standard International 10-20 System of electrode placement. Photic stimulation was performed. Hyperventilation was not performed. REPORT Throughout the entire study, the best background rhythm seen is approximately 8 Hz. This rhythm is seen in both posterior head regions symmetrically and does attenuate to eye opening and closure. Photic stimulation was performed which did not elicit any epileptiform abnormalities. However, a good driving response was seen. Hyperventilation was not performed. There was no sleep recorded during the EEG. Throughout the entire study there was no electrographic seizures recorded nor were there any independent epileptiform abnormalities seen. INTERPRETATION Normal awake EEG. A normal EEG does not rule out a possibility of seizure disorder. Clinical correlation is advised. Dictated by... Dionte Caballero II., M.D. GWS/flora TD: 03/30/2017 11:19 JOB #: [id number] Unit #: [id number] #: [id number] Patient: ANIKA COSTELLO NEURODIAGNOSTICS REPORT Page 1 of 1 X NEURODIAGNOSTICS REPORT
--- NOTE | ~2017-03-23 | US5 ---
[facility] A Service of [facility] RADIOLOGY TEXT RESULTS PATIENT: ANIKA COSTELLO LOCATION: [facility] : 70 UNIT #: [id number] AGE: [address]: Dionte Caballero II, MD SEX: M ORDER DR: [id number] [facility] [address] [place], [place] [address] [id number] O MR#: [id number] Acc #: [id number] NAME: ANIKA COSTELLO : 1970 SEX: M STUDY DATE/TIME: 03/23/2017 10:39 UNIT: [facility]EE[facility] ROOM: STUDY DESCRIPTION: US Abdominal Complete Attending Physician: Dionte Caballero II., M.D. Referring Physician: Dionte Caballero II., M.D. Ordering Physician: Vikram Kearns M.D. Primary Care Physician: Vikram Kearns M.D. MEDICAL IMAGING REPORT This report is preliminary unless electronic signature is present EXAM Abdominal ultrasound complete 03/23/2017 INDICATIONS 46-year-old male with elevated liver enzymes at the last physician visit. Slightly dizzy and some discomfort in the abdomen, diabetes, hypertension, hyperlipidemia. COMPARISON Sonographic imaging of the abdomen was performed and head with 02/23/2017 FINDINGS Visualized aspects of the aorta demonstrate no aneurysm. Segmentally visualized IVC unremarkable. Pancreas not well visualized or assessed. Liver measures 14.6 cm long axis and is unremarkable to the extent visualized with the exception of probable mild fatty infiltration. Significant portions were obscured by bowel gas and not seen or evaluated. There is also limited visualization of the right kidney to the extent visualized; it measures about 10.2 cm. There is a benign-appearing cyst in the upper pole, right kidney, measuring 2 cm. No shadowing stone. The gallbladder is unremarkable to the extent visualized. No distinct shadowing stone. No sonographic Jones's sign was described by the technologist. Extrahepatic common bile duct measures 5 mm. The left kidney measures about 9.6 cm long axis. There is no shadowing stone on the left. There are cystic changes centrally within the left kidney that may represent peripelvic cysts versus mild pelvocaliectasis or early hydronephrosis. It is not well visualized or assessed due to a limited sonographic window to evaluate the left kidney. CT may be useful for further assessment. The spleen measures 11.4 cm long axis. IMPRESSION [facility]. [facility] A Service of [facility] & [facility] RADIOLOGY TEXT RESULTS PATIENT: ANIKA COSTELLO LOCATION: [facility] : 70 UNIT #: [id number] AGE: [address]: Dionte Caballero II, MD SEX: M ORDER DR: 1. There was a limited sonographic window to evaluate the abdomen. These were the best images possible. 2. There is a benign cyst in the upper pole right kidney. There are findings that may reflect peripelvic cysts versus pelvocaliectasis or early hydronephrotic change of the left kidney. This could be better assessed with CT. No hydronephrosis on the right. 3. To the extent visualized, the gallbladder is unremarkable. No intra- or extrahepatic biliary ductal dilatation. 4. Imaging findings suggest mild fatty infiltration of the liver. STAT * RESULT Dictated by... Rodney Riley M.D. THIS IS AN ELECTRONICALLY VERIFIED REPORT Rodney Riley M.D. at 03/23/2017 3:00 PM Johana TD: 03/23/2017 12:41 JOB #: [id number] MEDICAL IMAGING REPORT Page 1 of 1 COPY
== END | disposition home or self-care (01) ==
LOC: CEEG 03-01 11:30
DX: R56.9 Unspecified convulsions (principal); N28.1 Cyst of kidney, acquired
CPT/HCPCS: 76700; 95816

== ENCOUNTER 2017-04-06 16:55 | Emergency (ER) | payer OTHER ==
[2017-04-06 17:44] LABS: BASOPHIL% 0.3 % (0-2.5); EOSINOPHIL# 0.2 X10e3 (0-0.7); EOSINOPHIL% 2.6 % (0.0-7.0); HEMATOCRIT 37.9 % (38.0-50.0); HEMOGLOBIN 12.6 gm/dL (13.0-16.0); LYMPHOCYTE# 1.6 X10e3 (1.0-3.5); MEAN CELL VOLUME 85.4 FL (83-96); MEAN CORPUSCULAR HEMOGLOBIN 28.4 PG (28-34); MEAN CORPUSCULAR HGB CONC 33.3 g/dL (30-36); MEAN PLATELET VOLUME 7.6 FL (6.5-11.5); MONOCYTE# 0.9 X10e3 (0-1.0); MONOCYTE% 11.3 % (3.0-12.0); NEUTROPHIL# 4.9 X10e3 (1.5-7.1); NEUTROPHIL% 64.8 % (40-75); PLATELET COUNT 178 X10e3 (140-420); RED BLOOD COUNT 4.43 X10e (3.90-5.60); RED CELL DISTRIBUTION WIDTH 13.6 % (11.0-15.5); WHITE BLOOD COUNT 7.5 X10e3 (4.0-10.5)
[2017-04-06 17:50] LABS: DIFF IND NO
[2017-04-06 18:28] LABS: ALCOHOL BLOOD <5 mg/dL ([, 0]); BLOOD UREA NITROGEN 8 mg/dL (9-23); BUN/CREATININE RATIO 8.88; CALCIUM SERUM 8.8 mg/dL (8.4-10.2); CARBON DIOXIDE 31 mmol/L (22-31); CHLORIDE 100 mmol/L (100-111); CREATININE SERUM 0.9 mg/dL (0.6-1.4); DILANTIN (PHENYTOIN) <2.5 ug/mL (10.0-20.0); GLOM FILT RATE Estimated 102.1 mL/min (>60); GLUCOSE FASTING 98 mg/dL (70-110); SODIUM 137 mmol/L (135-145)
[2017-04-06 19:15] LABS: URINE SOURCE CLEAN CATCH
[2017-04-06 19:21] LABS: URINE APPEARANCE CLEAR; URINE BILIRUBIN NEG (NEG); URINE BLOOD NEG (NEG); URINE COLOR YELLOW; URINE GLUCOSE NEG (NEG); URINE KETONE NEG (NEG); URINE LEUKOCYTE ESTERASE TRACE (NEG); URINE NITRATE NEG (NEG); URINE PROTEIN NEG (NEG); URINE SPECIFIC GRAVITY 1.009 (1.003-1.035); URINE UROBILINOGEN 0.2 MG/DL (NEG)
[2017-04-06 19:24] LABS: URBCS1 AUWI 0-2 /[HPF] (0-2); URINE BACTERIA AUWI NEG (NEGATIVE); URINE SQUAMOUS EPITHELIAL CELL NONE SEEN /[HPF]; UWBCS1 AUWI 0-2 (0-5)
[2017-04-06 19:26] LABS: CULTURE INDICATED? NO
== END 2017-04-06 23:45 | disposition home or self-care (01) ==
LOC: CED 16:55
PROVIDERS: Emergency Medicine
DX: H93.13 Tinnitus, bilateral (principal); G40.909 Epilepsy, unspecified, not intractable, without status epilepticus; I48.91 Unspecified atrial fibrillation; J45.909 Unspecified asthma, uncomplicated; Z86.73 Personal history of transient ischemic attack (TIA), and cerebral infarction without residual deficits; Z98.890 Other specified postprocedural states; Z88.0 Allergy status to penicillin; Z91.040 Latex allergy status; Z79.899 Other long term (current) drug therapy
CPT/HCPCS: 36415; 80048; 80185; 81003; 82947; 85025; 96365; 99284; G0480; Q2009

== ENCOUNTER 2017-04-28 14:38 | Emergency (ER) | payer OTHER ==
[~2017-04-28] VITALS: Ht 177.8 cm; Wt 68.0 kg
== END 2017-04-28 17:00 | disposition home or self-care (01) ==
LOC: CED 14:38
DX: G40.909 Epilepsy, unspecified, not intractable, without status epilepticus (principal); Z91.040 Latex allergy status; Z88.0 Allergy status to penicillin
CPT/HCPCS: 82947; 99284